=== PATIENT | male | born 1950 | race Caucasian/White ===

== ENCOUNTER 2021-03-16 18:57 | Outpatient (REF) | payer MEDICARE, SELFPAY ==
[2021-03-16 18:51] LABS: Abs Immature Grans 0.05 10^3/uL (0.0-0.06); Absolute Basophil Count 0.04 10^3/uL (0.0-0.2); Absolute Eosinophil Count 0.15 10^3/uL (0.0-0.7); Absolute Lymphocyte Count 1.81 10^3/uL (1.2-3.4); Absolute Monocyte Count 0.93 10^3/uL (0.1-0.8); Absolute Neutrophil Count 4.88 10^3/uL (1.2-6.7); Basophils % 0.5; Eosinophils % 1.9; HCT 44.3 % (40.0-50.0); Immature Grans % 0.6; MCH 28.2 pg (27.0-33.0); MCHC 31.6 % (32.0-36.0); MCV 89.1 fL (80-95); MPV 9.7 fL (8.0-11.0); Monocytes % 11.8; Neutrophils % 62.2; Nucleated RBC 0 %; Platelet Count 447 10^3/uL (130-400); RBC 4.97 10^6/uL (4.36-5.78); RDW 13.2 % (11.8-14.1); RDW-SD 43.1 fL; WBC 7.86 10^3/uL (4.4-10.8)
[2021-03-16 19:01] LABS: ALT 25 U/L (16-63); AST 22 U/L (15-37); Albumin 2.6 g/dL (3.4-5.0); Alkaline Phosphatase 184 U/L (46-116); Anion Gap 6.1 mmol/L (3-11); BUN 18 mg/dL (7-18); Bilirubin, Direct 0.2 mg/dL (0.0-0.2); Bilirubin, Total 0.4 mg/dL (0.2-1.0); CO2 32.9 mmol/L (21.0-32.0); CREATININE 0.8 mg/dL (0.70-1.30); Calcium 9.7 mg/dL (8.5-10.1); Chloride 100 mmol/L (98-107); Glucose 118 mg/dL (74-106); Potassium 4.5 mmol/L (3.5-5.1); Sodium 139 mmol/L (136-145); Total Protein 6.8 g/dL (6.4-8.2)
[2021-03-16 19:24] LABS: Calculated LDL 104 mg/dL (<100); Cholesterol 163 mg/dL (<200); HDL Cholesterol 32 mg/dL (40-60); Triglyceride 137 mg/dL (<150)
== END 2021-03-16 18:58 | disposition home or self-care (01) ==
LOC: LBN 18:57
PROVIDERS: Visit Provider Family Medicine
DX: I10 Essential (primary) hypertension (principal); U07.1 COVID-19; J96.10 Chronic respiratory failure, unspecified whether with hypoxia or hypercapnia
CPT/HCPCS: 80048; 80061; 80076; 85025

== ENCOUNTER 2021-03-26 16:27 | Emergency (ER) | payer MEDICARE, SELFPAY ==
[2021-03-26] VITALS (19 sets, daily range): BP systolic 116–141; BP diastolic 56–70; PULSE 59–65; RESP 18; TEMP 36; O2SAT 94–97
--- NOTE | 2021-03-26 16:45 | DI.CT_ITS ---
Exam(s) CT HEAD CERVICAL SPINE WO EXAM: CT HEAD CERVICAL SPINE WO CLINICAL HISTORY: fall, head injury. TECHNIQUE: Imaging Protocol: Axial computed tomography images with coronal and sagittal reformatted images were created and reviewed COMPARISON: No exams were available for comparison FINDINGS: Head CT Ventricles and Extra axial spaces: Normal in size and morphology for the patient's age. Hemorrhage: None. Cerebral parenchyma: Mild atrophy and white matter changes consistent with small vessel disease. Midline shift: None. Brainstem/Cerebellum: Normal. Calvarium: Normal. Visualized Paranasal sinuses/Mastoids: Clear. Cervical Spine CT BONES: Vertebral body heights are maintained. Alignment is normal. There is no evidence of acute frac ture. Posterior fusion hardware lower cervical, upper thoracic spine. Severe degenerative disc changes and facet degenerative changes are seen . SOFT TISSUES: No paraspinal hematoma. The airway appears intact. No pneumothorax is seen at the lung apices. IMPRESSION: Head CT: No acute abnormality. C-spine CT: Degenerative and postsurgical changes, no acute abnormality. RADIATION DOSE DELIVERED: 1,768.22mGy.cm Total DLP DATA REPOSITORY: All CT scans at this facility are submitted to the National Radiology Data Registry (NRDR) Dose Index Registry (DIR) with the [employer] ([employer]). RADIATION OPTIMIZATION: All CT scans at this facility use at least one of these dose optimization te chniques: automated exposure control; mA and/or kV adjustment per patient size (includes targeted exa ms where dose is matched to clinical indication); or iterative reconstruction.
[2021-03-26] MEDS: Lidocaine/Epinephri/Tetracaine Topical Gel 3 ML TP (17:35)
--- NOTE | 2021-03-26 18:18 | DI.VRAD_ITS ---
PROCEDURE INFORMATION: Exam: CT Head Without Contrast Exam date and time: 03/26/2021 4:48 PM Age: 70 years old Clinical indication: Injury or trauma; Blunt trauma (contusions or hematomas); Consciousness not specified; Patient HX: Fall, head injury TECHNIQUE: Imaging protocol: Computed tomography of the head without contrast. COMPARISON: No relevant prior studies available. FINDINGS: Brain: For the patient's stated age, the ventricles, cerebral sulci and basal cisterns are normal in appearance. There is no shift in midline structures mass effect. Mix-white differentiation is maintained. There is mild to moderate intracranial volume loss with compensatory prominence of the ventricles and CSF spaces. There are mild deep white matter changes, series 3, image 35, most consistent for microvascular ischemic changes. No other abnormal density to include hemorrhage is seen within the brain. Paranasal sinuses: No significant mucoperiosteal thickening or air-fluid levels present. There is very minor mucoperiosteal thickening within the anterior right ethmoid sinus. Mastoid air cells: Mastoid air cells are well pneumatized. Bones/joints: No acute osseous injury or underlying osseous mass. Soft tissues: Unremarkable. IMPRESSION: No acute intracranial pathology. PROCEDURE INFORMATION: Exam: CT Cervical Spine Without Contrast Exam date and time: 03/26/2021 4:48 PM Age: 70 years old Clinical indication: Injury or trauma; Blunt trauma (contusions or hematomas); Consciousness not specified; Patient HX: Fall, head injury TECHNIQUE: Imaging protocol: Computed tomography images of the cervical spine without contrast. COMPARISON: No relevant prior studies available. FINDINGS: Bones/joints: There are 7 [id number] cervical vertebral bodies. There is slight lessening of the normal cervical lordosis. Cervical vertebral body heights are well maintained. There is fusion of the C5 and C6 cervical vertebral bodies. Multilevel small to moderate-size anterior and lateral projecting marginal endplate osteophytes present. No acute osseous injury or underlying osseous mass. Incompletely seen are likely Lincoln rods within the distal cervical spine. No acute osseous injury or underlying osseous mass. Discs/Spinal canal: There is multilevel significant intervertebral disc space narrowing. There is neuroforaminal canal narrowing at the C2/C3 level, right greater than left and C4/C5 level, left greater than right. Lungs: Visualized portion of the lungs is unremarkable. Soft tissues: Thyroid is unremarkable. IMPRESSION: 1. No acute osseous injury. 2. Moderately severe degenerative change to the cervical spine. 3. Likely incompletely visualized Lincoln rods. Dictated and Authenticated by: Helio Carlisle MD. Ordering:CRAIG Jamison MD
--- NOTE | 2021-03-26 18:24 | ED.GENADUL_ITS ---
Discharge Plan Disposition Patient Disposition: SNF (LEVEL 1) [facility] Condition: Stable Discharge Details Clinical Impression: Laceration of head, Fall Primary Care Provider: Unknown,Unknown ED Provider: Shaheen Osullivan Home Meds and New Rx's Prescriptions: Continued atorvastatin 20 mg Tablet 20 mg PO QHS RF: 0 clopidogrel 75 mg Tablet 75 mg PO DAILY RF: 0 folic acid 400 mcg Tablet 0.8 mg PO DAILY RF: 0 aspirin 81 mg Tablet,Chewable 81 mg PO DAILY RF: 0 atenolol 50 mg Tablet 50 mg PO DAILY RF: 0 cholecalciferol (vitamin D3) 25 mcg (1,000 unit) Tablet 25 mcg PO DAILY RF: 0 duloxetine 60 mg Capsule, Delayed Rel Sprinkle 60 mg PO DAILY RF: 0 amlodipine 5 mg Tablet 5 mg PO BID RF: 0 misoprostol 100 mcg Tablet 100 mcg PO DAILY RF: 0 docusate sodium [Colace] 100 mg Capsule 100 mg PO BID RF: 0 hydrochlorothiazide 25 mg Tablet 25 mg PO DAILY RF: 0 losartan 100 mg Tablet 100 mg PO DAILY RF: 0 Vyvanse 30 mg capsule 30 mg PO DAILY RF: 0 gabapentin 600 mg Tablet 600 mg PO TID RF: 0 acetaminophen 500 mg Tablet 500 mg PO Q8H PRN (Reason: Pain) RF: 0 modafinil 200 mg Tablet 200 mg PO BID RF: 0 magnesium hydroxide 400 mg/5 mL Suspension 400 mg PO DAILY PRNRF: 0 bisacodyl [Dulcolax (bisacodyl)] 10 mg Suppository 10 mg AR DAILY PRNRF: 0 niacin 500 mg Tablet 500 mg PO TID RF: 0 polyethylene glycol 3350 [Miralax] 17 gram/dose Powder 17 g PO BID RF: 0 methadone 5 mg Tablet 5 mg PO TID RF: 0 Discharge Instructions Instructions: Laceration (ED) Additional Instructions: CT imaging of brain and neck are unremarkable. Laceration was repaired with Steri-Strips and Dermabond without difficulty. Tetanus status up-to-date. Dermabond and Steri-Strips will come off on their own in the next week or so. Please watch for new or worsening symptoms and return to the ER for any concerns. Medical Decision Making 70-year-old gentleman, on Plavix, witnessed fall at the rehab facility while transferring, presents for left face-scalp laceration. He reports tetanus status is up-to-date. He would like to avoid sutures if at all possible. Will obtain CT imaging of head and neck given he is on Plavix and struck his head. He appears well, awake, alert, oriented x4, low suspicion for acute intracranial process or cervical spine injury. Applied LET to the laceration, then thoroughly cleaned and irrigated the laceration. Able to easily approximate using Dermabond and then Steri-Strips. Patient tolerated well. CT imaging unremarkable per radiology Discussed CT findings with patient. He has no additional questions or concerns and is comfortable discharge back to his rehab facility. Appropriate transfer paperwork completed as he cannot ambulate safely. Standard discharge and return precautions provided. This documentation was generated using [employer] system, please disregard any oddities of phrase or misspellings. Medical Records Medical records reviewed: Yes I reviewed the patient's medical records. Medical records narrative: Health and rehab records Imaging Data Radiologic Study: Attestation: I personally reviewed and interpreted this imaging study as follows: Imaging: CT Scan Radiologist's impression: PROCEDURE INFORMATION: Exam: CT Head Without Contrast Exam date and time: 03/26/2021 4:48 PM Age: 70 years old Clinical indication: Injury or trauma; Blunt trauma (contusions or hematomas); Consciousness not specified; Patient HX: Fall, head injury TECHNIQUE: Imaging protocol: Computed tomography of the head without contrast. COMPARISON: No relevant prior studies available. FINDINGS: Brain: For the patient's stated age, the ventricles, cerebral sulci and basal cisterns are normal in appearance. There is no shift in midline structures mass effect. Mix-white differentiation is maintained. There is mild to moderate intracranial volume loss with compensatory prominence of the ventricles and CSF spaces. There are mild deep white matter changes, series 3, image 35, most consistent for microvascular ischemic changes. No other abnormal density to include hemorrhage is seen within the brain. Paranasal sinuses: No significant mucoperiosteal thickening or air-fluid levels present. There is very minor mucoperiosteal thickening within the anterior right ethmoid sinus. Mastoid air cells: Mastoid air cells are well pneumatized. Bones/joints: No acute osseous injury or underlying osseous mass. Soft tissues: Unremarkable. IMPRESSION: No acute intracranial pathology. PROCEDURE INFORMATION: KEIRA SANTANA Preliminary Radiology Report [employer] (QA) DISCREPANCY? If there is a discrepancy between the preliminary and final interpretation, please notify [facility] via [email or web address]. If you do not have access to our QA portal, call our QA team at [phone] CONFIDENTIALITY STATEMENT This report is intended only for the use of the referring physician, and only in accordance with law, If you received this in error, call [phone] Page 2 of 2 Exam: CT Cervical Spine Without Contrast Exam date and time: 03/26/2021 4:48 PM Age: 70 years old Clinical indication: Injury or trauma; Blunt trauma (contusions or hematomas); Consciousness not specified; Patient HX: Fall, head injury TECHNIQUE: Imaging protocol: Computed tomography images of the cervical spine without contrast. COMPARISON: No relevant prior studies available. FINDINGS: Bones/joints: There are 7 [id number] cervical vertebral bodies. There is slight lessening of the normal cervical lordosis. Cervical vertebral body heights are well maintained. There is fusion of the C5 and C6 cervical vertebral bodies. Multilevel small to moderate-size anterior and lateral projecting marginal endplate osteophytes present. No acute osseous injury or underlying osseous mass. Incompletely seen are likely Lincoln rods within the distal cervical spine. No acute osseous injury or underlying osseous mass. Discs/Spinal canal: There is multilevel significant intervertebral disc space narrowing. There is neuroforaminal canal narrowing at the C2/C3 level, right greater than left and C4/C5 level, left greater than right. Lungs: Visualized portion of the lungs is unremarkable. Soft tissues: Thyroid is unremarkable. IMPRESSION: 1. No acute osseous injury. 2. Moderately severe degenerative change to the cervical spine. 3. Likely incompletely visualized Lincoln rods. HPI General Mode of arrival: EMS . Date/Time Provider Initiated Documentation: 03/26/21 16:39 . Limitations to Documentation: no limitations . Information obtained by: patient and EMS . 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 He denies any symptoms prior to the fall. He reports pain at the site of the laceration but denies global headache, visual changes, neck pain, chest pain, shortness of breath, nausea, vomiting abdominal pain, pain in his extremities. He reports that his tetanus status is up-to-date. He denies taking any medications prior to arrival. Related Data Home Medications Medication Instructions Recorded Confirmed Vyvanse 30 mg PO DAILY 03/26/21 03/26/21 acetaminophen 500 mg PO Q8H PRN 03/26/21 03/26/21 amlodipine 5 mg PO BID 03/26/21 03/26/21 aspirin 81 mg PO DAILY 03/26/21 03/26/21 atenolol 50 mg PO DAILY 03/26/21 03/26/21 atorvastatin 20 mg PO QHS 03/26/21 03/26/21 bisacodyl [Dulcolax (bisacodyl)] 10 mg AR DAILY PRN 03/26/21 03/26/21 cholecalciferol (vitamin D3) 25 mcg PO DAILY 03/26/21 03/26/21 clopidogrel 75 mg PO DAILY 03/26/21 03/26/21 docusate sodium [Colace] 100 mg PO BID 03/26/21 03/26/21 duloxetine 60 mg PO DAILY 03/26/21 03/26/21 folic acid 0.8 mg PO DAILY 03/26/21 03/26/21 gabapentin 600 mg PO TID 03/26/21 03/26/21 hydrochlorothiazide 25 mg PO DAILY 03/26/21 03/26/21 losartan 100 mg PO DAILY 03/26/21 03/26/21 magnesium hydroxide 400 mg PO DAILY PRN 03/26/21 03/26/21 methadone 5 mg PO TID 03/26/21 03/26/21 misoprostol 100 mcg PO DAILY 03/26/21 03/26/21 modafinil 200 mg PO BID 03/26/21 03/26/21 niacin 500 mg PO TID 03/26/21 03/26/21 polyethylene glycol 3350 [Miralax] 17 g PO BID 03/26/21 03/26/21 Allergies Allergy/AdvReac Type Severity Reaction Status Date / Time ketamine Allergy Unknown Unverified 03/26/21 17:47 midazolam Allergy Unknown Unverified 03/26/21 17:47 Penicillins Allergy Unknown Unverified 03/26/21 17:47 General Stated Complaint: HeadInjury MOE: 3 Review of Systems Constitutional Constitutional: Denies fever(s) and Denies headache(s) Eyes Eyes: Denies change in vision ENT Ears, Nose, Mouth, and Throat: Denies headache(s) and Denies neck pain Cardiovascular Cardiovascular: Denies chest pain and Denies dyspnea Respiratory Respiratory: Denies cough and Denies dyspnea Gastrointestinal Gastrointestinal: Denies abdominal pain, Denies nausea and Denies vomiting Musculoskeletal Musculoskeletal: Denies back pain and Denies neck pain Neurologic Neurologic: Denies headache(s) and Reports weakness (Generalized) PFSH All Active Problems (Updated 03/26/21 @ 19:28 by YAA Wilder) Laceration of head (Acute) Fall (Acute) Social History Smoking/Tobacco Use Status: Never Smoking risk assessment performed?: Yes Alcohol Intake: never Drug use: Never Substance use type: does not use Do you feel safe at home: Yes Do you feel safe in your relationship?: Yes Exam Const General: cooperative, healthy appearing, comfortable and no acute distress Orientation: alert, awake and oriented x3 [facility] Head: normocephalic and atraumatic Head images: 1. 3 cm, irregular, well approximated laceration. There is no active bleeding. Diffuse mild discomfort. No crepitus Face and sinus: normal facial exam Mouth: moist mucous membranes Eyes General: appearance normal, both eyes and all related structures Conjunctivae: conjunctivae normal Neck Neck: normal visual inspection, full ROM, trachea midline, supple and nontender Resp Effort & Inspection: normal respiratory effort and able to speak in complete sentences Auscultation: clear to auscultation bilaterally Cardio Rate: regular rate Rhythm: regular rhythm GI Palpation: soft and nontender Back/Spine/Pelvis Back: No back tenderness Skin General skin exam: no rashes or lesions noted Neuro General: patient alert, patient awake, patient oriented x3, moves all extremities and no focal motor deficits Cranial Nerves: CN's II-XI intact bilaterally Cognition: normal cognition Speech: speech normal Motor: other (Patient able to move all extremities, reports baseline weakness) Sensory Exam: no sensory deficits noted Extrem General: normal to inspection and capillary refill normal Psych Appearance: grossly normal Mental Status: mental status grossly normal Course Vital Signs Vital signs: Vital Signs Temperature 36.0 C L 03/26/21 16:26 Pulse 65 03/26/21 16:26 Respiratory Rate 18 03/26/21 16:26 Blood Pressure 127/69 03/26/21 16:26 Pulse Oximetry 97 03/26/21 16:26 Temperature 36.0 C L 03/26/21 16:26 Temperature Source Skin 03/26/21 16:26 Pulse 65 03/26/21 16:26 Respiratory Rate 18 03/26/21 16:26 Respiratory Effort Non-Labored 03/26/21 16:50 Respiratory Depth Normal 03/26/21 16:50 Respiratory Pattern Normal 03/26/21 16:50 Blood Pressure 127/69 03/26/21 16:26 Pulse Oximetry 97 03/26/21 16:26 Oxygen Delivery Method Room Air 03/26/21 16:26 Oxygen Flow Rate 0 03/26/21 16:26 Pain Level 5 03/26/21 16:50 Comment 03/26/21 16:26
== END 2021-03-26 19:45 | disposition skilled nursing facility (03) ==
PROVIDERS: Emergency Provider Physician Assistant
DX: S01.81XA Laceration without foreign body of other part of head, initial encounter (principal); S09.8XXA Other specified injuries of head, initial encounter; W18.39XA Other fall on same level, initial encounter
CPT/HCPCS: 12013; 99284; 70450; 72125; 99283

== ENCOUNTER 2021-03-29 11:22 | Outpatient (CLI) | payer MEDICARE, SELFPAY ==
--- NOTE | 2021-03-29 | DI.RAD_ITS ---
Exam(s) XR CERVICAL SPINE COMP 4-5V EXAM: XR CERVICAL SPINE COMP 4-5V CLINICAL HISTORY: C-SPINE PAIN S/P FALL. TECHNIQUE: 2D digital imaging was performed. COMPARISON: CT CT HEAD CERVICAL SPINE WO from 03/26/2021 FINDINGS: Posterior rods are noted in the upper thoracic spine. There are severe degenerative disc changes as well as severe facet degenerative changes throughout the cervical spine. The air is no evidence of s ubluxation. Multilevel neural bilateral foraminal narrowing is present. IMPRESSION: Severe degenerative changes. Rods in the upper thoracic spine. DATA REPOSITORY: RADIATION DOSE DELIVERED:
== END 2021-03-29 11:42 ==
PROVIDERS: PCP Internal Medicine; Visit Provider Nurse Practitioner Family
DX: M54.2 Cervicalgia (principal); M47.812 Spondylosis without myelopathy or radiculopathy, cervical region; R29.6 Repeated falls
CPT/HCPCS: 72050

== ENCOUNTER 2021-04-02 17:34 | Outpatient (REF) | payer MEDICARE, SELFPAY ==
[2021-04-06 10:59] LABS: COVID-19 RT-PCR Result Not Detected ((See Note))
== END 2021-04-02 17:35 | disposition home or self-care (01) ==
LOC: LBN 17:34
PROVIDERS: PCP Internal Medicine; Visit Provider Family Medicine
DX: Z20.822 Contact with and (suspected) exposure to COVID-19 (principal)
CPT/HCPCS: U0003

== ENCOUNTER 2021-04-06 01:08 | Outpatient (CLI) | payer MEDICARE, SELFPAY ==
--- NOTE | 2021-04-06 10:30 | ST.MBS ---
Date of Service Date of service: 04/06/21 Time of Service: 10:30 Modified Barium Swallow Study Findings: Videofluoroscopic Swallowing Evaluation / Modified Barium Swallow Study (VFSE/MBSS) Speech Language Pathology Report Patient referred for MBSS from Dr. Winchester given hx CVA and known dysphagia. Total time spent: 40 minutes, including History taking, Exam, and Provision of results to patient HPI: CARBON GRINDER from [facility], where patient is currently staying, provided the following report via telephone: Patient suffered CVA in 01/2021. Reportedly has had cough with and without po intake, and was admitted to [facility] from prior facility on a Regular solids / Mildly thickened liquids diet. (No prior assessment documentation available to explain rationale for this diet). Patient feels his dysphagia has resolved, and recalls previously using R head turn strategy to mitigate risk immediately following his stroke. PMHx: CVA. Limited available info/documentation. Patient new to [facility]. Previous Imaging: none available SUBJECTIVE: Chintan arrived to Radiology Suite this date, ambulating via wheelchair, [facility] He was transferred with assist to hausted MBSS chair in the fluoro room. Patient adamantly denying any residual dysphagia at this time. When questioned further, he also denies coughing with liquids or solids, sensation of pharyngeal residue, voice changes, denies reflux symptoms, recent PNA, weight loss. Endorses some difficulty chewing due to largely edentulous status (patient only has 6 bottom front teeth, no uppers, no molars) but denies any food avoidances. He states he is able to eat anything that he wants without issue. OBJECTIVE: Videofluoroscopic Swallow Evaluation (VFSE/MBSS) was conducted in the lateral and [id number] projections by Speech-Language Pathologist, in collaboration with Radiologist, to evaluate oropharyngeal swallow function. Anatomic view under fluoroscopy: WFL PO barium contrast trials: Oral barium water soluble contrast was administered as follows: IDDSI Level 0 Varibar thin liquid (40% w/v) IDDSI Level 2 Varibar nectar thick/mildly thick liquid (40% w/v) IDDSI Level 4 Varibar pudding/pureed/extremely thick (40% w/v) IDDSI Level 7 Regular Solid: 1/2 cedric cracker coated in 3 mL Varibar pudding; 13 mm barium tablet PHYSIOLOGIC FINDINGS Oral Phase 1 Lip Closure: 0-No labial escape 2 Tongue Control: 0- Cohesive bolus between tongue to palatal seal 3 Bolus Preparation/Mastication: 0- Timely and efficient chewing/mashing 4 Bolus Transport/Lingual Motion: 2- Slowed tongue motion; 2 or less AP movements 5 Oral residue: 1- Trace residue lining oral structures Location: tongue 6 Initiation of pharyngeal swallow: 2- Bolus head at posterior laryngeal surface of epiglottis ( PUREE, SOLIDS ) 3- Bolus head in pyriform sinus ( LIQUIDS, incl. thickened ) Pharyngeal Phase 7 Velar Elevation: 0- No bolus between soft palate and pharyngeal wall 8 Laryngeal Elevation: 1- Partial superior movement of thyroid cartilage with partial approximation of arytenoids to epiglottic petiole 9 Anterior Hyoid Excursion: 0- Complete anterior movement 10 Epiglottic Movement: 0- Complete inversion 11 Laryngeal Vestibule Closure: 0- Complete; no air/contrast in laryngeal vestibule Penetration occurs prior to and during (variable) initial swallow onset from current bolus, and is ejected from laryngeal vestibule upon completion of the swallow. 12 Pharyngeal Stripping Wave: VARIABLE 0- Present; complete 1- Present; diminished 13 Pharyngeal Contraction: DNT; lack of AP view 14 PES/UES Openin- Complete distension and complete duration; no obstruction of flow 15 Tongue Base Retraction: 1- Trace column of contrast between tongue base and posterior pharyngeal wall 16 Pharyngeal residue: 2- Collection of residue within or on pharyngeal structures Location: RIGHT > Left valleculae, trace on BOT and in Pyriforms Kristy Pharyngeal Residue Severity Rating Scale (YPRS) (Nguyen, et al, 2015) Vallecula Residue Severity III Mild 5-25% Epiglottic ligament visible Pyriform Sinus Residue Severity II Trace 1-5% Trace coating of the mucosa Esophageal Phase 17 Esophageal Clearance Upright Position: DNT; lack of AP view NOTE: This study was performed for interpretation only of the oropharyngeal and pharyngoesophageal domains of swallowing. It is not intended to diagnose any other radiologic abnormalities or substitute for a formal esophagram study. Overall 8-Point Penetration-Aspiration Scale (PAS) (Charisse, et al, 1996) X 1 - No material enters the airway. (SOLIDS) X 2 - Material enters the airway, remains above the vocal folds, and is ejected from the airway. (LIQUIDS) 3 - Material enters the airway, remains above the vocal folds, and is not ejected from the airway. 4 - Material enters the airway, contacts the vocal folds, and is ejected from the airway. 5 - Material enters the airway, contacts the vocal folds, and is not ejected from the airway. 6 - Material enters the airway, passes below the vocal folds, and is ejected into the larynx or out of the airway. 7 - Material enters the airway, passes below the vocal folds, and is not ejected from the trachea despite effort. 8 - Material enters the airway, passes below the vocal folds, and no effort is made to eject. Clinical Indicator(s) of Prandial/Postprandial Aspiration: N/A Trialed Compensatory Swallow Strategies & Outcome: Postures Chin Tuck Posture - unsuccessful Head Turn/Rotation to Left, Right - both directions unsuccessful Maneuvers 3-second Preparatory Set - possible successful, vs impact of small sip size Secondary saliva swallow x1- successful Bolus Modifications Wash with liquid - successful to clear solid residue, but leaves liquid residue Reduced Volume - mildly successful Increased Viscosity - unsuccessful Dysphagia Outcome and Severity Scale (ZIA) LEVEL 5 - Full PO: modified diet and/or independence - Mild dysphagia; Distant supervision, may need 1 diet consistency restricted IMPRESSIONS: Mild oral-pharyngeal dysphagia, likely chronic in setting of CVA, characterized primarily by delayed hyo-laryngeal excursion initiation resulting in flash penetration of thin and thick liquids during the swallow, with mild (primarily vallecular) pharyngeal residue following the swallow. No laryngeal residue remained upon completion of the swallow due to good laryngeal closure. Noting in particular that the patient appears at times with timely laryngeal elevation, but significantly delayed anterior hyoid movement (swallow occurs in two discrete phases, not synergistically) resulting in delayed but complete epiglottic inversion and UES distension. Also noting mild slowed movement of lingual posterior transit, mild reduced pharyngeal stripping wave and tongue base retraction. Swallow safety is largely preserved; swallow efficiency is mildly impaired (due to need for secondary swallows). Patient appears to be at low risk for potential aspiration PNA, pulmonary compromise and low for malnutrition, low risk for dehydration. Diet modification is not indicated, provided that patient is able to implement recommended strategies to mitigate risk. Swallow prognosis is good given age, time since onset, likely continued recovery pattern s/p CVA, and pending patient/caregiver training in risk management as outlined. Patient appears to be a good candidate for behavioral swallow rehabilitation. PLAN: Diet recommendation: IDDSI Level 6- Soft and bite size in setting of partial edentulousness. 0-Thin Liquids with safety strategies Please see further details at www.iddsi.org Risk Management: Small sips, approx 10 mL Alternate solids/liquids as able Multiple swallows per bolus (2 total) to encourage clearance of pharyngeal stasis/residue Control risk factors for aspiration pneumonia via (a) thorough oral hygiene & (b) maintaining physical mobility as tolerated Specialist referrals: n/a Ancillary tests: n/a Therapy: Recommend CARBON GRINDER follow up at discharge location to ensure patient carryover of appropriate strategies and recommendations, and to ensure diet tolerance over the course of a full meal. May consider the following: -Provale cup, if patient demonstrates difficulty with carryover of recommendations to take small sips. Goal: Defer to treating CARBON GRINDER Follow-up exam: N/A Thank you for allowing me to take part in this patient's care. Please feel free to contact me with any questions/concerns. Karen Zuñiga M.S., CCC-CARBON GRINDER Speech Language Pathologist Coding CPT Codes MOTION FLUOROSCOPY/SWALLOW - [id number] ([id number])
--- NOTE | 2021-04-06 10:30 | DI.RAD_ITS ---
Exam(s) RF MODIFIED SPEECH BA SWALLOW TECHNIQUE: Modified barium swallow was performed in conjunction with speech pathology. CONTRAST MATERIAL: Oral barium contrast was administered. COMPARISON: No exams were available for comparison FINDINGS: Note that this is not a dedicated esophagram, distal esophagus not evaluated. There is no evidence of aspiration of thick or thin liquids, barium coated pudding or cookies. There was penetration of thin and thick liquids during the examination. Speech pathology report to follow . IMPRESSION: Penetration of thin and thick liquids occur during the examination. No lino aspiration was seen dur ing the examination. RADIATION DOSE DELIVERED: wilbert Lei=11.1 mGy
[2021-04-06] MEDS: Barium Sulfate 81% w/w for Oral Suspension 148 GM BTL 120 GM PO (11:21)
[2021-04-06] MEDS: Barium Sulfate Oral Paste 40% W/V 230 ML TUBE 20 ML PO (11:23)
== END 2021-04-06 01:28 ==
PROVIDERS: PCP Internal Medicine; Visit Provider Speech-Language Pathologist
DX: R13.12 Dysphagia, oropharyngeal phase (principal); I69.398 Other sequelae of cerebral infarction
CPT/HCPCS: 92611; 74221